=== PATIENT | male | born 1940 | race Two or more races ===

== ENCOUNTER 2021-04-19 15:44 | Inpatient (IN) | payer OTHER ==
[~2021-04-19] VITALS: Ht 177.8 cm; Wt 80.3 kg
[2021-04-19] MEDS ORDERED: ACET-2154 PO (16:08)
[2021-04-19] MEDS ORDERED: MECL-159 PO (16:08)
[2021-04-19] MEDS ORDERED: APIX2.5T PO (16:08)
[2021-04-19 17:25] LABS: HEMATOCRIT 43.4 % (36.7-47.1); MEAN CORPUSCULAR HEMOGLOBIN 32.2 uug (23.8-33.4); MEAN CORPUSCULAR VOLUME 94.5 fL (73.0-96.2); PLATELET COUNT (AUTO) 216 K/uL (152-348)
[2021-04-19 17:28] LABS: CARBON DIOXIDE 21 mmol/L (21-32); CHLORIDE 105 mmol/L (98-107); CREATININE 1.8 mg/dL (0.6-1.3); GLUCOSE 120 mg/dL (74-106); POTASSIUM 4.1 mmol/L (3.5-5.1); UREA NITROGEN, BLOOD 28 mg/dL (7-18)
[2021-04-19 17:33] LABS: ALANINE AMINOTRANSFERASE 48 U/L (16-63); ALKALINE PHOSPHATASE 95 U/L (50-136); ASPARTATE AMINOTRANSFERASE 51 U/L (15-37); BILIRUBIN,DIRECT 0.4 mg/dL (0.0-0.2); TOTAL PROTEIN, SERUM 8.1 g/dL (6.4-8.2)
[2021-04-19 17:42] LABS: THYROID STIMULATING HORMONE 4.518 mIU/mL (0.358-3.740)
[2021-04-19] MEDS ORDERED: FUROSEMIDE 40 MG/4 ML VIAL IV ONE (19:00)
[2021-04-19 19:01] LABS: *BILIRUBIN,URIN 1+ (NEGATIVE); *BLOOD, URINE 1+ (NEGATIVE); *CLARITY,URINE CLEAR (CLEAR); *COLOR,URINE DARK YELLOW (YELLOW); *KETONES,URINE NEGATIVE (NEGATIVE); *UROBILINOGEN,URINE 0.2 E.U./dl (NORMAL); LEUKOCYTE ESTERASE ,URINE NEGATIVE (NEGATIVE); NITRITE, URINE NEGATIVE (NEGATIVE); PH,URINE 5.5 (5.0-8.0); UGLUCOSE NEGATIVE (NEGATIVE)
[2021-04-19 19:10] LABS: *AMPHETAMINE, URINE NEGATIVE (NEGATIVE); *CANNABINOID, URINE NEGATIVE (NEGATIVE); *COCCAINE, URINE NEGATIVE (NEGATIVE); *OPIATE, URINE NEGATIVE (NEGATIVE); *PHENCYCLIDINE SCREEN,URINE NEGATIVE (NEGATIVE)
--- NOTE | 2021-04-19 19:11 | NUR ---
Recieved report from JIM Manrique.
--- NOTE | 2021-04-19 19:11 | NUR ---
Pt. 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 Pt bib from home. 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 Pt. is sami speaking only. Pt. has bilateral extremity weakness from his prior stroke, worse on his left side. Pt. is a&ox3. Pt co SOB, and is coughing up white sputum occasionally. Pt. is afebrile, denies chills, congestion, exposure to covid. Pt. denies vision changes, headache, chest pain.
[2021-04-19] MEDS ORDERED: CLOPIDOGREL 75 MG TABLET PO ONE (19:15)
[2021-04-19] MEDS ORDERED: DILTIAZEM HCL 25 MG IV IV ONE (19:15)
[2021-04-19] MEDS ORDERED: ASPIRIN 325 MG TABLET PO ONE (19:15)
[2021-04-19] MEDS ORDERED: HEPARIN/D5W DRIP 500 ML IV PRN (19:15)
[2021-04-19 19:19] LABS: BACTERIA,URINE NONE SEEN /HPF (NONE SEEN); RED BLOOD CELL CASTS,URINE FEW /LPF (NONE SEEN); SQUAMOUS EPITHELIAL CELL,UR NONE SEEN /HPF (NONE SEEN); WBC,URINE 0-3 /HPF (0-3)
[2021-04-19] MEDS ORDERED: FUROSEMIDE 20 MG/2 ML VIAL ONE (19:21)
[2021-04-19] MEDS ORDERED: CLOPIDOGREL 75 MG TABLET ONE ×2 (19:47→19:53)
[2021-04-19] MEDS ORDERED: HEPARIN/D5W DRIP 500 ML ONE (19:47)
[2021-04-19] MEDS ORDERED: ASPIRIN 325 MG TABLET ONE (19:47)
[2021-04-19] MEDS ORDERED: DILTIAZEM HCL 25 MG IV ONE (19:48)
[2021-04-19] MEDS ORDERED: HEPARIN SODIUM,PORCINE 5,000 UNITS/ML VIAL ONE (20:11)
[2021-04-19] MEDS ORDERED: HEPARIN SODIUM,PORCINE/PF 100 UNIT/ML, 5ML SYR IV ONE (20:15)
--- NOTE | 2021-04-19 20:15 | NUR ---
Pt. resting in bed, is at bedside. Pt. does not report any new symptoms. Repositioned for comfort due to sob. Fall precautions in place. Will continue to monitor.
--- NOTE | 2021-04-19 20:25 | NUR ---
Dr. Shin consulting with Dr. Laws regarding pt.
--- NOTE | 2021-04-19 20:27 | NUR ---
Dr. Laws accepted pt for admission.
[2021-04-19] MEDS ORDERED: HYDROCODONE BIT/HOMATROPINE 5 ML UDC PO STA (20:33)
[2021-04-19] MEDS ORDERED: BENZONATATE 100 MG CAPSULE ONE (20:44)
[2021-04-19] MEDS ORDERED: BENZONATATE 100 MG CAPSULE PO ONE (20:45)
--- NOTE | 2021-04-19 20:46 | NUR ---
Pt became anxious and hr increased from 85-90bpm to 110-115 bpm and Sp02 was reduced to 90 on room air. Pt. was placed on 2L nc and his spo2 is now 95 on room air. Pt reposition and reoriented, his anxiety has now reduced. Pt. also increased production of coughing white sputum. notified. Pt. airway is clear, vss. Fall precautions are in place and monitoring pt. 1:1. Will continue to monitor.
[2021-04-19] MEDS ORDERED: HYDROCODONE BIT/HOMATROPINE 5 ML UDC ONE (20:54)
--- NOTE | 2021-04-19 21:00 | NUR ---
Gave report to JIM De Guzman.
--- NOTE | 2021-04-19 21:10 | NUR ---
Pt. stable, denies anxiety, chest pain, is A&Ox3. Transported to floor by CASINO ACCOUNTANT on tele monitor with oxygen.
--- NOTE | 2021-04-19 21:13 | NUR ---
Heparin drip will continue with pt. when pt is transferred to the tele floor, endorsed by JIM De Guzman.
[2021-04-19] MEDS ORDERED: ACETAMINOPHEN 325 MG TABLET PO PRN (22:00)
[2021-04-19] MEDS ORDERED: Z GUARD REMEDY PASTE 57 GM TUBE TOP PRN (22:00)
[2021-04-19] MEDS ORDERED: BUMETANIDE INJ 4 MG in IV DEXTROSE 5% 24 ML IV ONE (22:00)
[2021-04-19] MEDS ORDERED: MAGNESIUM HYDROXIDE 30 ML LIQUID UDC PO PRN (22:00)
--- NOTE | 2021-04-19 22:02 | NUR ---
Received patient from Er via wheelchair accompanied by ER nurse.ALert and able to make needs known, setswana speaking with O2 at 2LPM via NC saturating well. No s/s of distress noted.Iv on right AC 20g patent and intact with heparin drip at 1350 units/ml. notified of the admission and troponin result and heparin drip with order to transfer patient to CCU.Called CCu report given to Petrona.v/s taken 133/74, 99 o2 sat, 18,p95 98 temp. Belonging list done.
--- NOTE | 2021-04-19 22:15 | NUR ---
CALLED DR. VARMA TO GET ADMISSION ORDER, NOTIFY MD ALSO THAT PATIENT ON HEPARIN DRIP, TROPONIN ABNORMAL, MD ORDER TO MOVE PATIENT BENJI PATIENT.
[2021-04-19 23:08] VITALS: BP 128/79
--- NOTE | 2021-04-19 23:08 | NUR ---
RECEIVED PATIENT FROM THE 3RD FLOOR VIA WHEELCHAIR .BENJI STATUS C/O TROPONIN INCREASE AND ON HEPARIN DRIP TO FOLLOW NSTEMI PROTOCOL .HEPARIN DRIP AT 1350 UNITS/HR NEXT APTT AT 0200. DX:CHF,ONEIL,PULMONARY EDEMA .PATIENT ALERT X2 ,ALBANIAN SPEAKING ONLY . PATIENT STEP SON WITH PATIENT AND QUESTIONS ANSWERED PER STEP SON PATIENT WITH HISTORY OF STROKE X2.PATIENT ORIENTED WITH ROOM AND CALL LIGHT SYSTEM .RR 21 SATURATION ON 02 AT 2 L/MIN NASAL CANNULA 99% TO 100%.
--- NOTE | 2021-04-19 23:45 | NUR ---
INCONTINENT OF URINE ,CHNAGED SOILED LINENS AND GOWN . URINAL PLACED WITH IN REACH AND ADVISED PATIENT TO CALL FOR ASSISTANCE .
[2021-04-20] VITALS (24 sets, daily range): BP systolic 63–151; BP diastolic 29–88
[2021-04-20] MEDS ORDERED: BUMETANIDE 1 MG/4 ML VIAL ONE (00:06)
--- NOTE | 2021-04-20 00:15 | NUR ---
PATIENT VERY ANXIOUS AND TRYING TO GET OOB . NEEDS FREQUENT REORIENTATION . PATIENT VERY RESLTESS CALLED INSIDE SALES SPECIALIST FROM THE FLOOR THAT SPEAK SAMI TO HELP INTERPRET WITH PATIENT OLGA LIDIA STARKA CAME AND EXPLAINED TO PATIENT AND HELP CALM DOWN PATIENT . THIS TIME PATIENT FOLLOWING COMMANDS KNOWS HIS NAME AND KNOW HIS IN THE HOSPITAL BUT DONT KNOW THE NAME OF THE HOSPITAL .PATIENT SCREAMING FOR AGUA/ WATER ,GIVEN WATER ,PATIENT ABLE TO SIPS WATER USING THE STRAW .
--- NOTE | 2021-04-20 00:15 | NUR ---
STARTED ANOTHER HEPLOCK NO. 20 RIGHT FOREARM FOR BUMEX DRIP . INSERTED TEMPLETON CATHETER ACCURATE FOR INTAKE AND OUTPUT .
[2021-04-20] MEDS: ZOLPIDEM 5 MG TABLET PO PRN (00:22)
[2021-04-20] MEDS: ONDANSETRON 4 MG/2 ML VIAL IV PRN (00:29)
--- NOTE | 2021-04-20 02:40 | NUR ---
LAB CALLED APPT -124.7 ( HIGH) HOLD FOR 1 HOURS AND DECREASE THE RATE TO 1100 UNITS . NEXT APTT 6 HOURS AFTER AROUND 0940.WILL ENDORSED .
--- NOTE | 2021-04-20 03:40 | NUR ---
STARTED HEPARIN DRIP AT 1100 UNITS .NO S/S OF BLEEDING .
[2021-04-20 04:09] LABS: *BILIRUBIN,URIN NEGATIVE (NEGATIVE); *CLARITY,URINE CLEAR (CLEAR); *COLOR,URINE YELLOW (YELLOW); *KETONES,URINE NEGATIVE (NEGATIVE); *UROBILINOGEN,URINE 0.2 E.U./dl (NORMAL); LEUKOCYTE ESTERASE ,URINE NEGATIVE (NEGATIVE); NITRITE, URINE NEGATIVE (NEGATIVE); PH,URINE 5.5 (5.0-8.0); UGLUCOSE NEGATIVE (NEGATIVE)
[2021-04-20 04:21] LABS: *CREATININE,URINE 34.3 mg/dL (30-125); *URINE TOTAL PROTEIN RANDOM 7.5 mg/dL (<150/24HR)
[2021-04-20 04:22] LABS: *BLOOD, URINE TRACE (NEGATIVE)
--- NOTE | 2021-04-20 04:30 | NUR ---
PHARMACOVIGILANCE SPECIALIST CAME AND DRAW AM LABS . ADVISED TO GET BLOOD FROM THE LEFT ARM ,THE RIGHT HAND HAVING THE HEPARIN DRIP .
[2021-04-20 04:34] LABS: BACTERIA,URINE NONE SEEN /HPF (NONE SEEN); RBC,URINE 0-3 /HPF (0-3); SQUAMOUS EPITHELIAL CELL,UR FEW /HPF (NONE SEEN); WBC,URINE 0-3 /HPF (0-3)
[2021-04-20 05:39] LABS: ALANINE AMINOTRANSFERASE 45 U/L (16-63); ALKALINE PHOSPHATASE 87 U/L (50-136); ASPARTATE AMINOTRANSFERASE 43 U/L (15-37); BILIRUBIN,TOTAL 0.8 mg/dL (0.2-1.0); CARBON DIOXIDE 24 mmol/L (21-32); CHLORIDE 104 mmol/L (98-107); CHOLESTEROL 127 mg/dL (<200); CREATININE 1.9 mg/dL (0.6-1.3); GLUCOSE 128 mg/dL (74-106); HDL CHOLESTEROL 42 mg/dL (40-60); MAGNESIUM 2.3 mg/dL (1.8-2.4); PHOSPHOROUS 4.2 mg/dL (2.5-4.9); POTASSIUM 3.6 mmol/L (3.5-5.1); TOTAL PROTEIN, SERUM 7.6 g/dL (6.4-8.2); TRIGLYCERIDES 78 MG/DL (30-150); UREA NITROGEN, BLOOD 32 mg/dL (7-18)
[2021-04-20 05:50] LABS: HEMATOCRIT 40.3 % (36.7-47.1); MEAN CORPUSCULAR HEMOGLOBIN 32.3 uug (23.8-33.4); MEAN CORPUSCULAR VOLUME 94.6 fL (73.0-96.2); PLATELET COUNT (AUTO) 220 K/uL (152-348)
[2021-04-20 06:14] LABS: CREATINE KINASE, TOTAL 214 U/L (39-308)
--- NOTE | 2021-04-20 08:15 | NUR ---
Patient restless and agitated contraindication for 1st step-mattress. pt. at high risk for falling.
--- NOTE | 2021-04-20 09:00 | NUR ---
PT's at bedside and at this time pt's stated "I want my to be treated correctly in the past this Dr. Franks did not order the proper tests for my and only gave him medications for dizziness one week later my had a "derrame cerebral" stroke, and it was all the Dr's fault because my was a healthy man never been sick in his life" PT's educated on chronic chf and heart abnormalities, with reinforcement needed it".
--- NOTE | 2021-04-20 09:48 | NUR ---
Patient, restless agitated, banging BLE against side rails.
[2021-04-20] MEDS: HEPARIN/D5W DRIP 500 ML IV PRN ×2 (10:40→21:09)
--- NOTE | 2021-04-20 11:00 | NUR ---
Pt's at bedside and questioning lab draw stating "the hospital is draining my from all his blood, why are they drawing too much blood" pt's educated on the need to monitor labs, and that new tests order received.
--- NOTE | 2021-04-20 11:37 | NUR ---
Elie Curtis at bedside report given see order hx. status changed to ICU status. Pt's Jessica updated of care plan by Kirsten.
[2021-04-20] MEDS ORDERED: FUROSEMIDE 40 MG/4 ML VIAL IV ONE (11:45)
[2021-04-20] MEDS ORDERED: IPRATROPIUM BROMIDE 0.5 MG/2.5 ML NEBU NEB PRN (11:45)
[2021-04-20] MEDS ORDERED: ALBUTEROL SULFATE 2.5 MG/3 ML NEBU IH PRN (11:45)
[2021-04-20] MEDS ORDERED: BUMETANIDE INJ 4 MG in IV DEXTROSE 5% 24 ML IV ONE (11:45)
[2021-04-20] MEDS ORDERED: ALBUTEROL SULFATE 2.5 MG/3 ML NEBU NEB PRN (11:48)
[2021-04-20] MEDS: CEFTRIAXONE 1 G in IV DEXTROSE 5% 50 ML IV SCH (12:10)
[2021-04-20] MEDS: BENZONATATE 100 MG CAPSULE PO SCH ×2 (13:13→21:10)
[2021-04-20 14:46] LABS: ABG HCO3 24.7 mmol/L; ABG PCO2 36.7 mmHg (35.0-45.0); ABG PH 7.446 (7.350-7.450); ABG PO2 62.9 mmHg (75.0-100.0); ABG SITE LEFT RADIAL; ABG TOTAL HEMOGLOBIN 14.3 G/dL (13.5-18.0); COHb 1.3 % (0.5-1.5); MetHb 0.2 % (0.0-1.5); O2Hb 90.7 % (94.0-97.0); VENT MODE ROOM AIR
--- NOTE | 2021-04-20 15:13 | NUR ---
Primary attending Dr. Mandujano in the unit to see and examine pt. at this time ABG results informed to him with orders to continue with care plan received.
--- NOTE | 2021-04-20 16:37 | NUR ---
A call from [facility] to inquire about pt's contact information. She was given the number on file, and I was asked to obtain a valid contact number once comes to visit.
--- NOTE | 2021-04-20 17:00 | NUR ---
PT's back to visit pt. and at this time she requested an update, She was informed that pt remains increasingly agitated,and confused, pt's stated that she didn't understanding terminology and she was explained in simple and synonyms terms in Syrian "crazy, disorganized behavior", at this time patient stating "Im not crazy attempting at the same time get out bed and not following commands". both pt. and educated on safety measures with reinforcement needed it.
[2021-04-20] MEDS: LORAZEPAM 2 MG/1 ML VIAL IV PRN (17:18)
[2021-04-20] MEDS: QUETIAPINE FUMARATE 25 MG TABLET PO SCH (17:19)
--- NOTE | 2021-04-20 17:40 | NUR ---
Pt's 's at bedside, at this time patient stating "here they wanna kill me, I don't know why I'm here take me home". Addendum: 04/20/21 at 1800 by AUGUST LAWRENCE RN With at bedside Pt. becoming more agitated stating "the think I'm crazy take me home"
--- NOTE | 2021-04-20 17:58 | NUR ---
Cardiology services, Dr. Machado in the unit to see and examine pt. pt's at bedside and updated of care plan by
[2021-04-20] MEDS: METOPROLOL TARTRATE 25 MG TABLET PO SCH ×2 (18:30→20:42)
--- NOTE | 2021-04-20 18:30 | NUR ---
APTT 66.8 NO CHANGED ON HEPARIN DRIP RATE.APPT IN 6 HOURS .
--- NOTE | 2021-04-20 19:30 | NUR ---
CHANGED SOILED LINENS AND GOWN ,LOTION APPLIED TO SACRAL AREA AND BILATERAL GOWN AREA .PATIENTS AT B/S AND UPDATED WITH PATIENTS V/S AND QUESTIONED ANSWERED .
--- NOTE | 2021-04-20 20:30 | NUR ---
CALLED SELWYN MCINTYRE AND INFORMED HIM THAT PATIENTS BP LOW AT 1900 BP 82/39 ,2000 BP 73/52 ,20:25 BP 63/46 WITH ORDER TO GIVE NORMAL SALINE 500 ML X1 DOSE AND TO HOLD ALL BP MEDICATION .
[2021-04-20] MEDS: ATORVASTATIN 40 MG TABLET PO SCH (20:41)
[2021-04-20] MEDS ORDERED: IV NORMAL SALINE 500 ML IV ONE (20:45)
--- NOTE | 2021-04-20 21:13 | NUR ---
DUE MEDICATION GIVEN PATIENT TOLERATED MEDICATION WITH WATER .
--- NOTE | 2021-04-20 22:00 | NUR ---
COMPLETED BOLUS OF NORMAL SALINE 500 ML .BP 101/60 HR 103 RR 20 SATURATION 100 %. WILL CONTINUE TO MONITOR BP AND SAFETY .
--- NOTE | 2021-04-20 23:37 | NUR ---
TURNED AND REPOSITION PATIENT PATIENT KEEPS ON MOVING AND TRYING TO GET OOB ,REORIENTATION AND ADVISED PATIENT NOT TO GET OUT OF BED AND STAY IN BED TO PREVENT FALL .
[2021-04-21] VITALS (83 sets, daily range): BP systolic 64–131; BP diastolic 31–90
--- NOTE | 2021-04-21 00:15 | NUR ---
PADDED SIDE RAILS OF THE BED WITH PILLOWS ,PATIENT BILATERAL LEG KEEPS ON HANGING OUT OF THE BED ,WITH SMALL DISCOLORATIONS ,BLACK BRUSHING LOWER LEGS .
[2021-04-21] MEDS: ZOLPIDEM 5 MG TABLET PO PRN ×2 (00:29→22:42)
--- NOTE | 2021-04-21 01:18 | NUR ---
CALLED LAB C/P APTT DUE PATIENT ON HEPARIN DRIP .
--- NOTE | 2021-04-21 02:00 | NUR ---
DECREASE HEPARIN BY 2 UNITS/KG/HR NOW 800 UNITS NEXT APTT DUE AT 0800.CALLED SELWYN MCINTYRE C/Orestes MORALES WITH ORDER TO START ON LEVOPHED DRIP .
[2021-04-21] MEDS ORDERED: NOREPINEPHRINE BITARTRATE 8 MG in IV NORMAL SALINE 242 ML IV PRN (02:15)
--- NOTE | 2021-04-21 02:30 | NUR ---
dr baker was called , informed of sustaining low blood pressure , received order to start levophed
[2021-04-21] MEDS ORDERED: NOREPINEPHRINE BITARTRATE 4 MG/4 ML VIAL IV ONE (02:40)
[2021-04-21 05:05] LABS: HEMATOCRIT 34.4 % (36.7-47.1); MEAN CORPUSCULAR HEMOGLOBIN 31.6 uug (23.8-33.4); MEAN CORPUSCULAR VOLUME 94.7 fL (73.0-96.2); PLATELET COUNT (AUTO) 247 K/uL (152-348)
[2021-04-21] MEDS: BENZONATATE 100 MG CAPSULE PO SCH ×3 (05:42→19:51)
[2021-04-21 05:51] LABS: IRON, SERUM 70 ug/dL (50-175)
[2021-04-21 05:53] LABS: CARBON DIOXIDE 24 mmol/L (21-32); CHLORIDE 102 mmol/L (98-107); CREATININE 3.6 mg/dL (0.6-1.3); FERRITIN 1507 ng/mL (26-388); GLUCOSE 152 mg/dL (74-106); MAGNESIUM 2.1 mg/dL (1.8-2.4); PHOSPHOROUS 5.3 mg/dL (2.5-4.9); POTASSIUM 3.4 mmol/L (3.5-5.1); UREA NITROGEN, BLOOD 46 mg/dL (7-18)
--- NOTE | 2021-04-21 06:30 | NUR ---
dr busby is here to see patient , informed of recent events
[2021-04-21] MEDS ORDERED: IV NORMAL SALINE 250 ML IV ONE (06:45)
--- NOTE | 2021-04-21 08:00 | NUR ---
tech brazer tester came and informed that he needs to stay still and if he had anything to calm him and not be so restless. Patient was given Ativan for procedure.
[2021-04-21] MEDS: LORAZEPAM 2 MG/1 ML VIAL IV PRN ×3 (08:10→22:00)
[2021-04-21] MEDS: METOPROLOL TARTRATE 25 MG TABLET PO SCH ×2 (08:58→19:50)
[2021-04-21] MEDS ORDERED: FUROSEMIDE 20 MG/2 ML VIAL IV SCH (09:00)
--- NOTE | 2021-04-21 09:48 | NUR ---
refused PICC line placement. Explained need for the line placement and Dr. Ochoa was called she asked for update and questioned the need for PICC line and complained that she does not want her to be mistreated in the hospital and Dr. Ochoa asked how he was being mistreated and she said that nurses are saying he is "loco" which is crazy in Hungarian. And it was explained to her because she did not know what confusion was in her language and explained in laymen's terms what confusion was in a form of description and further description was explained which was due to the results and location of the stroke and despite further explanation she remains believing that he is being mistreated and still refuses for PICC line as well.
--- NOTE | 2021-04-21 09:50 | NUR ---
Dr. Don deleon to run levophed at 0.1mcg /kg/min on peripheral line for now.
--- NOTE | 2021-04-21 09:56 | NUR ---
After updating pt's on the phone over pt's care plan, orders to stop lasix received and implemented.
--- NOTE | 2021-04-21 10:00 | NUR ---
was at bedside and after she spoke to the doctor she stepped out of the room and stated in Belizean that she knows that the reason that another patient in ICU left was because he was being mistreated. We explained that we do not disclose any information of any patient to anyone.
[2021-04-21] MEDS: NOREPINEPHRINE BITARTRATE 8 MG in IV NORMAL SALINE 242 ML IV PRN ×2 (10:48→23:34)
[2021-04-21] MEDS: POTASSIUM CHLORIDE 20 MEQ in IV 1/2NS 1000 ML 1,000 ML IV PRN (10:49)
--- NOTE | 2021-04-21 11:45 | NUR ---
Dr. Machado in the unit, no changes to Levophed drip, agree to DC diuretics, and is okay to continue with the IVF of 1/2 NS with 20 KCL. Continue Heparin for AFIB.
[2021-04-21] MEDS: CEFTRIAXONE 1 G in IV DEXTROSE 5% 50 ML IV SCH (12:12)
--- NOTE | 2021-04-21 12:12 | NUR ---
midline placed by
--- NOTE | 2021-04-21 12:23 | NUR ---
Both Upper Extremities are covered with bandages. Unable to perform the procedure. RELIGIOUS EDUCATION COORDINATOR Thien and RN Nichol noted.
--- NOTE | 2021-04-21 17:47 | NUR ---
Patient is so restless and always holding on to aldrich site. Asked repeatedly if it is discomforting he says yes. Informed Kirsten GUIDRY and is ok to try to DC aldrich and applying mittens so he will not pull on wires and IV tubing.
[2021-04-21] MEDS: QUETIAPINE FUMARATE 25 MG TABLET PO SCH (18:00)
[2021-04-21] MEDS: ATORVASTATIN 40 MG TABLET PO SCH (19:50)
--- NOTE | 2021-04-21 20:30 | NUR ---
& family at bedside.
[2021-04-22] VITALS (73 sets, daily range): BP systolic 84–163; BP diastolic 24–93
[2021-04-22] MEDS: BENZONATATE 100 MG CAPSULE PO SCH ×3 (05:04→21:02)
[2021-04-22 05:16] LABS: HEMATOCRIT 29.5 % (36.7-47.1); MEAN CORPUSCULAR HEMOGLOBIN 31.9 uug (23.8-33.4); PLATELET COUNT (AUTO) 215 K/uL (152-348)
[2021-04-22 06:01] LABS: CARBON DIOXIDE 22 mmol/L (21-32); CHLORIDE 104 mmol/L (98-107); CREATININE 3.5 mg/dL (0.6-1.3); GLUCOSE 126 mg/dL (74-106); MAGNESIUM 2.2 mg/dL (1.8-2.4); PHOSPHOROUS 4.5 mg/dL (2.5-4.9); POTASSIUM 3.9 mmol/L (3.5-5.1); UREA NITROGEN, BLOOD 53 mg/dL (7-18)
[2021-04-22] MEDS: LORAZEPAM 2 MG/1 ML VIAL IV PRN ×2 (06:05→14:04)
[2021-04-22] MEDS: POTASSIUM CHLORIDE 20 MEQ in IV 1/2NS 1000 ML 1,000 ML IV PRN (06:07)
[2021-04-22 06:36] LABS: LYMPHOCYTES % (MANUAL) 5 % (20-40); MONOCYTES % (MANUAL) 11 % (2-10); NEUTROPHILS % (MANUAL) 84 % (42-75)
[2021-04-22] MEDS: NOREPINEPHRINE BITARTRATE 8 MG in IV NORMAL SALINE 242 ML IV PRN (06:54)
--- NOTE | 2021-04-22 07:15 | NUR ---
Patient urinated x 1. Changed linen and placed diaper with PM RN. Patient asleep in bed, easily arousable by touch. Levophed running at 0.04 mcg/kg/min on the right upper arm midline. Controlled afib on monitor HR 80-90s. On RA, saturating 98-100%. Noted multiple B/L LE bruising. B/L mittens on for safety. Side rails padded for patient safety and skin protection RE: per report, patient hits legs on side rails when trying to get out of bed. Bed alarm on.
[2021-04-22] MEDS: METOPROLOL TARTRATE 25 MG TABLET PO SCH ×2 (08:24→21:00)
--- NOTE | 2021-04-22 10:10 | NUR ---
Dr Ochoa at bedside, given updates about patient status. See MD notes for new orders.
--- NOTE | 2021-04-22 11:30 | NUR ---
currently at bedside at this time.
--- NOTE | 2021-04-22 11:47 | NUR ---
Belongings at bedside given to to be taken home. signed updated belongings list.
--- NOTE | 2021-04-22 12:11 | NUR ---
Per request, patient given ice chips. HOB elevated, patient sitting up. No coughing and able to swallow small amount of ice chips. Will continue to monitor at this time.
--- NOTE | 2021-04-22 12:15 | NUR ---
CHAO Palacio at bedside. See INFECTION CONTROL NURSE notes for new orders.
[2021-04-22] MEDS ORDERED: VANCOMYCIN IV 1,250 MG in IV DEXTROSE 5% 250 ML IV SCH (13:00)
--- NOTE | 2021-04-22 13:10 | NUR ---
Seen by Esteban QUANTITATIVE DEVELOPER, hospitalist. Informed of bedside nursing swallow eval. QUANTITATIVE DEVELOPER would like to have a repeat swallow eval by speech therapist before changing NPO status. Will continue NPO status and monitor patient closely. Aspiration precaution observed.
--- NOTE | 2021-04-22 13:12 | NUR ---
Urine and sputum sample collected.
--- NOTE | 2021-04-22 13:20 | NUR ---
Urine sample confirmed received by Flynn from lab. States that sputum sample is not adequate. Will collect another sample.
[2021-04-22] MEDS ORDERED: PIPERACILLIN SODIUM/TAZOBACTAM 3.375 G in IV DEXTROSE 5% 50 ML IV SCH (14:00)
[2021-04-22] MEDS: PIPERACILLIN/TAZO 2.25 G in IV DEXTROSE 5% 50 ML IV SCH ×2 (14:36→21:04)
--- NOTE | 2021-04-22 16:48 | NUR ---
Levophed off since 1430. BP stable at this time - currently 124/57, HR 90s
--- NOTE | 2021-04-22 17:10 | NUR ---
and family member at bedside. Gave update to - informed of NPO status and to refrain from giving patient water or ice chips at this time. verbalized understanding and states that she will translate to the patient when he asks for water.
[2021-04-22] MEDS: QUETIAPINE FUMARATE 25 MG TABLET PO SCH (17:22)
--- NOTE | 2021-04-22 18:22 | NUR ---
Son in law visiting at bedside at this time.
[2021-04-22] MEDS: ATORVASTATIN 40 MG TABLET PO SCH (21:00)
[2021-04-23] VITALS (24 sets, daily range): BP systolic 86–124; BP diastolic 52–83
[2021-04-23] MEDS: LORAZEPAM 2 MG/1 ML VIAL IV PRN ×3 (02:09→21:02)
[2021-04-23] MEDS: POTASSIUM CHLORIDE 20 MEQ in IV 1/2NS 1000 ML 1,000 ML IV PRN ×2 (02:12→16:46)
[2021-04-23] MEDS: BENZONATATE 100 MG CAPSULE PO SCH ×3 (03:56→22:00)
[2021-04-23] MEDS: PIPERACILLIN/TAZO 2.25 G in IV DEXTROSE 5% 50 ML IV SCH ×3 (05:11→17:42)
[2021-04-23 05:17] LABS: HEMATOCRIT 27.3 % (36.7-47.1); MEAN CORPUSCULAR HEMOGLOBIN 31.7 uug (23.8-33.4); MEAN CORPUSCULAR VOLUME 94.7 fL (73.0-96.2); PLATELET COUNT (AUTO) 190 K/uL (152-348)
[2021-04-23 05:37] LABS: CARBON DIOXIDE 25 mmol/L (21-32); CHLORIDE 107 mmol/L (98-107); CREATININE 2.4 mg/dL (0.6-1.3); GLUCOSE 118 mg/dL (74-106); MAGNESIUM 2.2 mg/dL (1.8-2.4); PHOSPHOROUS 2.3 mg/dL (2.5-4.9); POTASSIUM 3.8 mmol/L (3.5-5.1); UREA NITROGEN, BLOOD 46 mg/dL (7-18)
--- NOTE | 2021-04-23 08:31 | NUR ---
Spoke with Ralph (speech therapist), and Jeanie (head of rehab department) regarding repeat swallow eval. Both states that swallow eval will be done tomorrow. Will notify
[2021-04-23] MEDS: METOPROLOL TARTRATE 25 MG TABLET PO SCH ×2 (08:45→20:44)
[2021-04-23] MEDS: HALOPERIDOL 1 MG TABLET PO SCH ×2 (08:58→16:27)
--- NOTE | 2021-04-23 08:58 | NUR ---
Patient screaming and increasingly agitated trying to get out of bed. Attempted to reorient patient in Portuguese with lan manager. PRN ativan given as ordered.
--- NOTE | 2021-04-23 09:46 | NUR ---
Changed soiled diaper and repositioned patient. at bedside after AM hygiene care.
[2021-04-23] MEDS ORDERED: VANCOMYCIN IV 750 MG in IV DEXTROSE 5% 250 ML IV ONE (10:30)
--- NOTE | 2021-04-23 10:55 | NUR ---
Seen by Dr Machado, plate hanger. spoke with at bedside. See MD notes for new orders.
--- NOTE | 2021-04-23 14:06 | NUR ---
Spoke with Dr Loya, Psychiatrist. states that he will see patient tomorrow for the ordered psych consult.
--- NOTE | 2021-04-23 15:00 | NUR ---
Patient repositioned and pillows added to side rails for patient safety RE: patient hits legs on side rails when trying to get out of bed. Will continue to closely monitor
--- NOTE | 2021-04-23 15:07 | NUR ---
Spoke to Dr Ochoa, primary physician, regarding swallow eval for tomorrow and PO Haldol order. New orders received and implemented. Addendum: 04/23/21 at 1508 by MIKALA EDWARDS RN 1700 PO Haldol to be held until swallow eval tomorrow.
[2021-04-23] MEDS ORDERED: NEUTRA PHOS PACKET PO ONE (16:15)
[2021-04-23] MEDS: HALOPERIDOL LACTATE 5 MG/1 ML VIAL IM PRN (16:30)
[2021-04-23] MEDS ORDERED: SODIUM PHOSPHATE MM 15 MMOL in IV NORMAL SALINE 250 ML IV ONE (16:45)
--- NOTE | 2021-04-23 17:45 | NUR ---
Daughter visiting at bedside at this time.
--- NOTE | 2021-04-23 19:00 | NUR ---
Received patient in bed A/Ox1-2. Patient is currently on mitten restraints and bed rails are heavily padded due to him thrashing about and causing extensive bruising on his legs. Patient is on room air, SAT 94-96%. A-fib controlled on the monitor. BP stable. JENNIFER midline, no pressors, running 0.45%NS + 20KCL @75ml/hr. No SOB or signs of distress. Patient on NPO status pending ST eval in the am.
[2021-04-23] MEDS: ATORVASTATIN 40 MG TABLET PO SCH (20:44)
--- NOTE | 2021-04-23 22:10 | NUR ---
Obtained order form Dr. Zapata for Morphine 2mg IV q4h PRN, as he seemed to be in significant pain.
[2021-04-23] MEDS: MORPHINE SULFATE 2 MG/1 ML DISP.SYRIN IV PRN (22:21)
[2021-04-24] VITALS (12 sets, daily range): BP systolic 93–137; BP diastolic 59–80
[2021-04-24] MEDS: PIPERACILLIN/TAZO 2.25 G in IV DEXTROSE 5% 50 ML IV SCH ×4 (00:21→17:46)
[2021-04-24] MEDS: HALOPERIDOL LACTATE 5 MG/1 ML VIAL IM PRN ×3 (00:45→23:39)
[2021-04-24] MEDS: MORPHINE SULFATE 2 MG/1 ML DISP.SYRIN IV PRN ×3 (03:20→22:52)
[2021-04-24] MEDS: LORAZEPAM 2 MG/1 ML VIAL IV PRN (03:20)
[2021-04-24] MEDS: ONDANSETRON 4 MG/2 ML VIAL IV PRN (03:30)
[2021-04-24 04:56] LABS: HEMATOCRIT 24.8 % (36.7-47.1); MEAN CORPUSCULAR HEMOGLOBIN 32.1 uug (23.8-33.4); MEAN CORPUSCULAR VOLUME 95.3 fL (73.0-96.2); PLATELET COUNT (AUTO) 167 K/uL (152-348)
[2021-04-24 05:06] LABS: CARBON DIOXIDE 24 mmol/L (21-32); CHLORIDE 110 mmol/L (98-107); CREATININE 1.8 mg/dL (0.6-1.3); GLUCOSE 104 mg/dL (74-106); PHOSPHOROUS 2.7 mg/dL (2.5-4.9); POTASSIUM 3.8 mmol/L (3.5-5.1); UREA NITROGEN, BLOOD 37 mg/dL (7-18); VANCOMYCIN,RANDOM 9.2 ug/mL (18.0-26.0)
[2021-04-24] MEDS: BENZONATATE 100 MG CAPSULE PO SCH ×3 (06:00→21:25)
[2021-04-24] MEDS: POTASSIUM CHLORIDE 20 MEQ in IV 1/2NS 1000 ML 1,000 ML IV PRN (07:20)
[2021-04-24] MEDS ORDERED: VANCOMYCIN IV 1,000 MG in IV DEXTROSE 5% 250 ML IV ONE (08:00)
[2021-04-24 08:06] LABS: A/G RATIO 0.7 (0.7-1.7); ALPHA-1-GLOBULIN 0.4 g/dL (0.0-0.4); ALPHA-2-GLOBULIN 0.8 g/dL (0.4-1.0); BETA GLOBULIN 1.4 g/dL (0.7-1.3); GAMMA GLOBULIN 1.8 g/dL (0.4-1.8); GLOBULIN, TOTAL 4.3 g/dL (2.2-3.9); M-SPIKE 0.7 g/dL (Not Observed)
--- NOTE | 2021-04-24 08:49 | NUR ---
Seen by Dr Ochoa, primary physician. Orders received to downgrade patient to telemetry status. Addendum: 04/24/21 at 0854 by MIKALA EDWARDS RN Per , hold PO medications until patient is seen by speech therapy for swallow eval.
[2021-04-24] MEDS: HALOPERIDOL 1 MG TABLET PO SCH ×2 (09:00→17:00)
[2021-04-24] MEDS: METOPROLOL TARTRATE 25 MG TABLET PO SCH ×2 (09:00→20:54)
[2021-04-24] MEDS: IV D5 1/2 NS 1000 ML 1,000 ML IV PRN ×2 (09:16→20:05)
--- NOTE | 2021-04-24 10:37 | NUR ---
Changed soiled diaper and partially changed linen. at bedside visiting patient.
--- NOTE | 2021-04-24 13:54 | NUR ---
Seen by speech therapist for repeat swallow eval. See speech therapy notes for diet recommendation.
--- NOTE | 2021-04-24 14:39 | NUR ---
Patient partially removed diaper and urinated on linen. Given bed bath, changed and diaper linen. Asked patient if he's in pain, patient states no. Will continue to closely monitor.
--- NOTE | 2021-04-24 15:09 | NUR ---
Patient trying to climb out of bed laying completely sideways and partially removed diaper. Repositioned and placed clean diaper. Given PRN Haldol as ordered. Will continue to closely monitor.
--- NOTE | 2021-04-24 18:34 | NUR ---
Notified of bed placement in telemetry floor. Patient to be transferred during shift change to room 308.
--- NOTE | 2021-04-24 18:53 | NUR ---
Room change for transfer. Patient will be transferred to room 329A
--- NOTE | 2021-04-24 19:00 | NUR ---
Patient came from CCU unit, received report. Patient alert but with confusion, speak dominican but understand Kuwaiti. Patient noted with restlessness, constantly moving around the bed, but when asked if he has pain in Lithuanian and Kuwaiti answer is no. Patient risk for fall and injury, with 1;1 sitter for safety. Patient has r upper arm midline, noted with multiple purle red color bruise on right and lower extremeties, and arms. CCU RN reported that patient admitted with numerous bruises already from home. Patient side rails was padded with soft blanket, and cont to monitor.
[2021-04-24] MEDS: ATORVASTATIN 40 MG TABLET PO SCH (20:54)
[2021-04-24] MEDS: ZOLPIDEM 5 MG TABLET PO PRN (21:08)
--- NOTE | 2021-04-24 22:08 | NUR ---
Patient is sleepy but fighting his sleep, still moves around his legs and arms. kept clean and dry, turn and reposition, cont 1;1 sitter for safety.
--- NOTE | 2021-04-24 23:43 | NUR ---
Patient continuously kicking, restless in bed, unable to redirect behavior, patient was kept clean dry, given food and water but not effective. Patient hand mittens release and check for circulation. Patient given morphine for pain not effective, still restless, moaning but asked if he's in pain, patient will answer no. Patient given Haldol IM as ordered for agitation, anxiety, cont 1;1 sitter for safety.
--- NOTE | 2021-04-25 | NUR ---
Patient sleep intermittently, fighting his sleep, cont to reorient patient to go to sleep, will follow but then again wakes up, Patient kept clean and dry, cont on 1;1 sitter for safety. Patient tolerate apple sauce with medications, no choking no coughing noted, on nectar thickened liquid. Patient denies pain, tele monitor a fib control, saturation wnl. cont to monitor.
[2021-04-25] MEDS: PIPERACILLIN/TAZO 2.25 G in IV DEXTROSE 5% 50 ML IV SCH ×3 (00:43→12:54)
[2021-04-25 05:20] VITALS: BP 119/56
[2021-04-25] MEDS: LORAZEPAM 2 MG/1 ML VIAL IV PRN ×3 (05:22→21:41)
[2021-04-25] MEDS: BENZONATATE 100 MG CAPSULE PO SCH ×3 (05:22→21:11)
--- NOTE | 2021-04-25 06:14 | NUR ---
Patient started yelling, asked if he's in pain, patient said he's not in pain. Patient kept clean dry and comfortable, given oral care, bladder scan done after urination obtained 24cc urine in the bladder, check patient also for constipation, gently check anus, but no hard feces or stool noted. Patient has no bowel movement unable to collect feces. Patient given Ativan 1mg IV as order for anxiety, yelling screaming, with some help, cont 1;1 sitter, voiding adequately. cont to monitor.
--- NOTE | 2021-04-25 06:30 | NUR ---
PATIENT AWAKE TELE MONITOR SINUS TACHY UP TO 110, PATIENT SLEEP INTERMITTENTLY, RESTLESS IN BED, BUT NO COMPLAIN OF PAIN, CONT TO MONITOR.
[2021-04-25 06:34] LABS: HEMATOCRIT 25.6 % (36.7-47.1); MEAN CORPUSCULAR HEMOGLOBIN 32.4 uug (23.8-33.4); MEAN CORPUSCULAR VOLUME 95.2 fL (73.0-96.2); PLATELET COUNT (AUTO) 168 K/uL (152-348)
[2021-04-25 06:46] LABS: ALANINE AMINOTRANSFERASE 49 U/L (16-63); ALKALINE PHOSPHATASE 91 U/L (50-136); ASPARTATE AMINOTRANSFERASE 72 U/L (15-37); BILIRUBIN,TOTAL 1.9 mg/dL (0.2-1.0); CARBON DIOXIDE 25 mmol/L (21-32); CHLORIDE 109 mmol/L (98-107); CREATININE 1.8 mg/dL (0.6-1.3); GLUCOSE 133 mg/dL (74-106); POTASSIUM 3.7 mmol/L (3.5-5.1); TOTAL PROTEIN, SERUM 6.8 g/dL (6.4-8.2); UREA NITROGEN, BLOOD 30 mg/dL (7-18); VANCOMYCIN,RANDOM 12.9 ug/mL (18.0-26.0)
--- NOTE | 2021-04-25 07:30 | NUR ---
Patient received in bed, with eyes open and alert, but confused. Luxembourger speaking. 1:1 sitter at bedside for safety. Patient is restless and reorientation was attempted. No acute distress noted at this time. Fall and aspiration precautions in place. Right upper arm midline is patent running IVF at 75 mL/h as ordered with no redness or swelling at this time. B/l upper and lower extremity bruises noted. Side rails are padded for safety. Patient is sinus tachycardic on monitor with HR in the 110s at this time. Call san and personal belongings within easy reach. Will continue to monitor. Addendum: 04/26/21 at 1006 by OH PEDRAZA RN Patient received in bed, with eyes open and alert, but confused. Luxembourger speaking. 1:1 sitter at bedside for safety. Patient has no mittens or other medical restraints in place at this time. Patient is restless and reorientation was attempted. No acute distress noted at this time. Fall and aspiration precautions in place. Right upper arm midline is patent running IVF at 75 mL/h as ordered with no redness or swelling at this time. B/l upper and lower extremity bruises noted. Side rails are padded for safety. Patient is sinus tachycardic on monitor with HR in the 110s at this time. Call san and personal belongings within easy reach. Will continue to monitor.
[2021-04-25] MEDS ORDERED: VANCOMYCIN IV 1,250 MG in IV DEXTROSE 5% 250 ML IV ONE (08:00)
[2021-04-25] MEDS: HALOPERIDOL 1 MG TABLET PO SCH (08:28)
[2021-04-25] MEDS: METOPROLOL TARTRATE 25 MG TABLET PO SCH ×3 (08:28→20:57)
[2021-04-25 08:29] VITALS: BP 133/66
[2021-04-25] MEDS ORDERED: OLAN5TAB6 SL (11:44)
[2021-04-25] MEDS ORDERED: ALBU2.5V7 NEB (11:44)
[2021-04-25] MEDS ORDERED: RXVAN XX (11:44)
[2021-04-25] MEDS ORDERED: ATOR40TA PO (11:44)
[2021-04-25] MEDS ORDERED: PIPE2.257 IV (11:44)
[2021-04-25] MEDS ORDERED: METO25TA6 PO (11:44)
[2021-04-25] MEDS ORDERED: IPRA0.2S6 NEB (11:44)
[2021-04-25] MEDS ORDERED: HALO5VIA9 IM (11:44)
[2021-04-25 12:26] VITALS: BP 107/70
[2021-04-25] MEDS: OLANZAPINE ZYDIS 5 MG TAB.RAPDIS SL SCH ×2 (12:56→17:36)
[2021-04-25] MEDS: MORPHINE SULFATE 2 MG/1 ML DISP.SYRIN IV PRN (12:56)
--- NOTE | 2021-04-25 13:30 | NUR ---
Patient's midline dislodged and no longer patent. Therefore, D/C'ed midline and started new IV, inserted on right FA 20G.
[2021-04-25 15:37] VITALS: BP 98/65
--- NOTE | 2021-04-25 16:15 | NUR ---
Patient confused and therefore unable to sign consent for procedures. Patient's point of contact, Mr. Cal Davis and the patient's , Jessica, both state they do not want the bone marrow bx and the CT guided lung bx. They express their wish for the patient to be discharged to the SNF tomorrow and do not want any procedures done from now to the time of discharge. Dr. Linares made aware and all procedures cancelled as per MD orders.
[2021-04-25] MEDS: PIPERACILLIN SODIUM/TAZOBACTAM 3.375 G in IV DEXTROSE 5% 50 ML IV SCH ×2 (17:36→23:53)
[2021-04-25] MEDS: IV D5 1/2 NS 1000 ML 1,000 ML IV PRN (17:54)
--- NOTE | 2021-04-25 18:00 | NUR ---
Patient is in incontinent in diapers. Pati informed me that patient didn't have many wet diapers today. Patient also restless with possible abdominal discomfort. Dr. Ochoa contacted for possible urinary retention with orders for bladder scan qshift and for straight cath if residual is over 300 mL. Bladder scan completed, noted 33 mL residual. No abdominal distention noted at this time. Will continue to monitor.
--- NOTE | 2021-04-25 19:00 | NUR ---
1:1 sitter at bedside for safety. Patient has no mittens or other medical restraints in place at this time. Patient is restless and reorientation was attempted. No acute distress noted at this time. Fall and aspiration precautions in place. Patient is a fib on monitor with HR in the 110s at this time. Call san and personal belongings within easy reach.
[2021-04-25 19:25] VITALS: BP 105/56
[2021-04-25] MEDS: ATORVASTATIN 40 MG TABLET PO SCH ×2 (20:21→20:57)
--- NOTE | 2021-04-25 21:09 | NUR ---
Pt would not swallow crushed medication and they had to be suctioned out of his mouth to avoid aspiration. Will try again later to give patient his medication.
[2021-04-26 00:25] VITALS: BP 94/65
[2021-04-26] MEDS: LORAZEPAM 2 MG/1 ML VIAL IV PRN (03:29)
[2021-04-26 05:10] VITALS: BP 96/64
--- NOTE | 2021-04-26 05:24 | NUR ---
Pt slept intermittently throughout the night. Denies pain but patient exhibits anxious behavior, given Ativan and tolerated medication well. Plans for D/C to SNF today, family is aware and requests to be called about SNF placement before D/C, will endorse to day shift. Bed is locked and in lowest position. Safety and comfort provided. No other issues or concerns at this time, will endorse to day shift.
[2021-04-26] MEDS: BENZONATATE 100 MG CAPSULE PO SCH ×2 (06:00→13:55)
[2021-04-26] MEDS: PIPERACILLIN SODIUM/TAZOBACTAM 3.375 G in IV DEXTROSE 5% 50 ML IV SCH ×3 (06:13→17:20)
[2021-04-26 06:56] LABS: HEMATOCRIT 25.8 % (36.7-47.1); MEAN CORPUSCULAR HEMOGLOBIN 32.6 uug (23.8-33.4); MEAN CORPUSCULAR VOLUME 96.3 fL (73.0-96.2); PLATELET COUNT (AUTO) 145 K/uL (152-348)
--- NOTE | 2021-04-26 07:15 | NUR ---
patient in bed sleeping in stable condition. no signs of any SOB, pain or discomfort noted at this time. sitter at bedside. safety precautions in place. will continue to monitor.
--- NOTE | 2021-04-26 07:15 | NUR ---
patient resting comfortably, no report of any restraints needed last night.
[2021-04-26 07:53] VITALS: BP 116/68
[2021-04-26 08:06] LABS: *IMMUNOGLOBULIN G, SERUM 1598 mg/dL (603-1613); IMMUNOGLOBULIN A, SERUM 272 mg/dL (61-437); IMMUNOGLOBULIN M, SERUM 50 mg/dL (15-143)
[2021-04-26] MEDS ORDERED: LIDOCAINE HCL 1% 20 ML VIAL IJ PRN (08:45)
[2021-04-26] MEDS: OLANZAPINE ZYDIS 5 MG TAB.RAPDIS SL SCH ×3 (09:45→17:20)
[2021-04-26] MEDS: METOPROLOL TARTRATE 25 MG TABLET PO SCH (09:46)
--- NOTE | 2021-04-26 10:03 | NUR ---
patient awake, at bedside, patient able to communicate with . no episodes of restless or agitation noted, patient remains with no restraints.
[2021-04-26] MEDS: IV D5 1/2 NS 1000 ML 1,000 ML IV PRN (10:16)
--- NOTE | 2021-04-26 10:57 | NUR ---
patient awake and alert at this time, physical therapy working with patient. patient cooperative. no restraints have been used for 24hr. and sitter at bedside. will continue to monitor.
[2021-04-26] MEDS ORDERED: DILTIAZEM HCL 30 MG TABLET PO SCH (14:00)
[2021-04-26 16:00] VITALS: BP 112/79
--- NOTE | 2021-04-26 18:17 | NUR ---
patient in bed awake, no complain of any SOB, pain or discomfort at this time. sitter at bedside, safety precautions in place. discharge orders carried out, report provided to Sue at [facility], awaiting chicken picker by ambulance. will report to oncoming nurse.
--- NOTE | 2021-04-26 20:02 | NUR ---
Pt picked up from unit and left in stable condition by [facility] at [facility]. Tele box taken off patient. Patient in no distress, denies pain or SOB. IV site left intact to continue antibiotics.
[2021-04-27 16:26] LABS: *IMMUNOFIXATION RESULT Abnormal; *IMMUNOGLOBULIN G, SERUM 1744 HIGH
[2021-04-27 16:27] LABS: IMMUNOGLOBULIN A, SERUM 289; IMMUNOGLOBULIN M, SERUM 50
== END 2021-04-26 20:52 | DRG 280 ==
LOC: ER 15:48 → TELE3 21:19 → TELE-TD3 22:15 → CCU 22:50 → TELE 04-24 19:00 → TELE3 04-24 20:25
PROVIDERS: ADMIT Registered Nurse; ATTEND Nurse Practitioner Acute Care
PROC: 05H533Z Insertion of Infusion Device into Right Subclavian Vein, Percutaneous Approach (ICD-10-PCS; principal; 2021-04-21)
PROC: B546ZZA Ultrasonography of Right Subclavian Vein, Guidance (ICD-10-PCS; 2021-04-21)
DX: I13.0 Hypertensive heart and chronic kidney disease with heart failure and stage 1 through stage 4 chronic kidney disease, or unspecified chronic kidney disease (principal); A41.9 Sepsis, unspecified organism; I21.A1 Myocardial infarction type 2; J96.01 Acute respiratory failure with hypoxia; G93.41 Metabolic encephalopathy; N17.0 Acute kidney failure with tubular necrosis; I50.43 Acute on chronic combined systolic (congestive) and diastolic (congestive) heart failure; K66.1 Hemoperitoneum; D68.59 Other primary thrombophilia; E03.9 Hypothyroidism, unspecified; I48.91 Unspecified atrial fibrillation; N18.30 Chronic kidney disease, stage 3 unspecified; I48.0 Paroxysmal atrial fibrillation; Z79.01 Long term (current) use of anticoagulants; R58 Hemorrhage, not elsewhere classified; D64.9 Anemia, unspecified; F03.90 Unspecified dementia, unspecified severity, without behavioral disturbance, psychotic disturbance, mood disturbance, and anxiety; J43.9 Emphysema, unspecified; K57.30 Diverticulosis of large intestine without perforation or abscess without bleeding; K80.20 Calculus of gallbladder without cholecystitis without obstruction; N40.0 Benign prostatic hyperplasia without lower urinary tract symptoms; Z86.73 Personal history of transient ischemic attack (TIA), and cerebral infarction without residual deficits; R42 Dizziness and giddiness; R31.9 Hematuria, unspecified; R59.0 Localized enlarged lymph nodes; R91.1 Solitary pulmonary nodule; E86.1 Hypovolemia; D47.2 Monoclonal gammopathy; I71.4 Abdominal aortic aneurysm, without rupture; Z20.822 Contact with and (suspected) exposure to COVID-19
CPT/HCPCS: 36415; 36600; 70030-TC; 71045; 71250; 76770; 77074; 82784; 83550; 83615; 83735; 83970; 84100; 84153; 84155; 84156; 84165; 84300; 84443; 85025; 85610; 85730; 86140; 86334; 87040; 87070; 87086; 93005; 93307; 94640; A4663; C1758; G0378; J0696; J1630; J1644; J1940; J2060; J2270; J2405; J2543; J3370; J3480; J3490; J3590; J7030; J7040; J7050; J7060; U0003